=== PATIENT | male | born 1995 | race African-American/Black ===

== ENCOUNTER 2024-11-03 16:24 | Emergency (ER) | payer OTHER ==
[~2024-11-03] VITALS: Ht 188 cm; Wt 99.7 kg
[2024-11-03 17:04] LABS: BASO % 0.2 % (0.0-1.0); HEMATOCRIT 40.5 % (42.0-52.0); HEMOGLOBIN 13.6 g/dl (13.5-17.5); LYMPH # 1.2 10^3/uL (1.5-5.0); MEAN CORPUSCULAR HEMOGLOBIN 27.5 pg (27.0-33.0); MEAN CORPUSCULAR HGB CONC 33.6 g/dl (32.0-36.5); MONO # 0.6 10^3/uL (0.0-0.8); MONO % 6.7 % (2.0-8.0); NEUTROPHILS % 78.9 % (36.0-66.0); PLATELET COUNT, AUTOMATED 234 10^3/uL (150-450); RED BLOOD COUNT 4.94 10^6/uL (4.30-6.10); WHITE BLOOD COUNT 8.9 10^3/uL (4.0-10.0)
[2024-11-03 17:36] LABS: BLOOD UREA NITROGEN 14 MG/DL (9-23); CALCIUM LEVEL 9.5 MG/DL (8.5-10.1); CARBON DIOXIDE LEVEL 27 MMOL/L (20-31); CHLORIDE LEVEL 103 MMOL/L (98-107); CK-MB VALUE MASS < 1.0 NG/ML (<3.6); CPK CREATINE PHOSPHOKINASE 534 U/L (46-171); CREATININE FOR GFR 1.06 MG/DL (0.70-1.30); GLOMERULAR FILTRATION RATE > 60.0 (>60); GLUCOSE, FASTING 87 MG/DL (60-100); MB/CK RELATIVE INDEX 0.18 (< OR =4); POTASSIUM SERUM 4.2 MMOL/L (3.5-5.1); SODIUM LEVEL 139 MMOL/L (136-145)
[2024-11-03 18:35] LABS: CK-MB VALUE MASS < 1.0 NG/ML (<3.6)
[2024-11-03 18:37] LABS: CPK CREATINE PHOSPHOKINASE 516 U/L (46-171); MB/CK RELATIVE INDEX 0.19 (< OR =4)
[2024-11-03 19:38] LABS: CK-MB VALUE MASS < 1.0 NG/ML (<3.6)
[2024-11-03 19:39] LABS: CPK CREATINE PHOSPHOKINASE 506 U/L (46-171); MB/CK RELATIVE INDEX 0.19 (< OR =4)
[2024-11-03 19:54] VITALS: O2SAT 98
[2024-11-03 19:58] LABS: FREE T4 1.04 NG/DL (0.89-1.76); THYROID STIMULATING HORMONE 0.363 uIU/ML (0.55-4.78)
[2024-11-03 20:00] VITALS: BP 120/66
[2024-11-03] MEDS ORDERED: HOLTER MONITOR TOP (20:19)
[2024-11-03 20:23] VITALS: TEMP 97.8
== END 2024-11-03 20:39 | disposition home or self-care (01) ==
LOC: M ED 16:24 → EDBD 16:24 → M ED 20:39
DX: R55 Syncope and collapse (principal); R07.89 Other chest pain; F17.200 Nicotine dependence, unspecified, uncomplicated